=== PATIENT | female | born 1940 | race Two or more races ===

== ENCOUNTER 2024-02-24 11:58 | Emergency (ER) | payer OTHER ==
[~2024-02-24] VITALS: Ht 162.6 cm; Wt 76.7 kg
[2024-02-24] MEDS ORDERED: LIPITOR40 M1 PO (13:07)
[2024-02-24] MEDS ORDERED: TELMISARTAN-HC1 EAC2 PO (13:07)
[2024-02-24] MEDS ORDERED: BISOPROLOL-HCT1 EACH PO (13:08)
[2024-02-24] MEDS ORDERED: PLAVIX75 MG (13:08)
[2024-02-24] MEDS ORDERED: DETROL1 MG PO (13:08)
[2024-02-24] MEDS ORDERED: [UNRECOGNIZED DRUG - OTHER] PO (13:09)
[2024-02-24 14:55] LABS: HEMATOCRIT 35.4 % (36.0-45.00); HEMOGLOBIN 11.9 g/dL (12.0-15.00); MEAN CORPUSCULAR HEMOGLOBIN 32.3 pg (27.00-32.0); MEAN CORPUSCULAR HGB CONC 33.7 g/dl (32.0-36.0); PLATELET COUNT 168 K/uL (150-450); RED BLOOD COUNT 3.69 M/uL (4.00-6.00); RED CELL DISTRIBUTION WIDTH 13.8 % (11.5-14.5)
[2024-02-24 15:28] LABS: INR 1.03; PARTIAL THROMBOPLASTIN TIME 31.1 SECONDS (22.0-34.0); PROTHROMBIN TIME 10.8 SECONDS (9.0-11.5)
[2024-02-24 15:31] LABS: CALCIUM 9.4 mg/dL (8.5-10.1); CREATININE SERUM 1.35 mg/dL (0.55-1.02); GFR 37.45; POTASSIUM 4.16 mEq/L (3.5-5.1)
== END 2024-02-24 16:16 | disposition home or self-care (01) ==
LOC: ER 11:59
PROVIDERS: General Practice
DX: M79.605 Pain in left leg (principal); Z88.2 Allergy status to sulfonamides; Z88.6 Allergy status to analgesic agent; Z91.013 Allergy to seafood